=== PATIENT | female | born 1990 | race Caucasian/White ===

== ENCOUNTER 2016-09-19 23:01 | Emergency (ER) | payer SELFPAY ==
--- NOTE | 2016-09-20 02:22 | ED CLINICAL REPORT ---
Clinical Report - Physicians/Mid Levels [facility] [address] [place] [address] 09/19/2016 23:03 Patient: KATYA HEATON Time Seen: 0021. Arrived- By private vehicle. Historian- patient. HISTORY OF PRESENT ILLNESS Chief Complaint: DYSURIA. This started a few days ago and still present. It was abrupt in onset and has been constant but is not gone now. Modifying factors- worsened by urination. Not relieved by anything. The patient has had flank pain (left). She has had pain with urination. Similar symptoms previously: None. Recent medical care: The patient was seen recently in a clinic. ( reports recent dx of UTI. states she was given a medication described as macrobid. has not started abx.). REVIEW OF SYSTEMS No skin rash or enlarged lymph nodes. All systems otherwise negative, except as recorded above. PAST HISTORY See nurses notes. SOCIAL HISTORY Smoker- current status unknown. No alcohol use or drug use. Recent travel- (lives in [place] and here). FAMILY HISTORY Negative. ADDITIONAL NOTES The nursing notes have been reviewed. PHYSICAL EXAM Vital Signs: 09/19/2016 23:28 BP: 129/104. HR: 66. RR: 15. O2 saturation: 96%. Temp: 98.2 F. Pain level now: 7/10. Oxygen saturation normal. Appearance: Alert. Oriented X3. No acute distress. HEENT: Normal external inspection. ENT: Pharynx normal. CVS: Heart sounds normal. There is no decreased capillary refill. Respiratory: No respiratory distress. Breath sounds normal. Chest nontender. Abdomen: Soft and nontender. Bowel sounds normal. No mass. Back: Mild CVA tenderness on the left. Normal external inspection. Skin: Skin warm and dry. Normal skin color. No rash. Normal skin turgor. Extremities: Extremities nontender. No lower extremity edema. LABS, X-RAYS, AND EKG Pelvic Sonogram: PROCEDURE: US OB 1ST TRIMESTER W/TRANSVAG INDICATION: Assess for ectopic. HCG level 11. TECHNIQUE: Saavedra scale, color, and spectral Doppler transabdominal and endovaginal sonographic images of the first trimester gravid uterus were obtained. COMPARISON: None. FINDINGS: TRANSABDOMINAL SCANS: Electrodes are not identified (bladder incompletely filled). Kidneys are normal. TRANSVAGINAL SCANS: Uterus is of normal size (6.1 x 5.0 x 2.4 cm), although retroverted (normal variant). Endometrial thickness is normal (9 mm). No evidence of intrauterine gestational sac. Left ovary is normal (3.1 cm) with small follicular cysts. Right ovary is mildly prominent (4.8 cm) secondary to a 2.1 cm simple cyst. IMPRESSION: 1. There is a 2.1 cm simple right ovarian cysts with small left ovarian follicular cyst, and a small amount of free fluid in the pelvis. 2. There are no secondary signs of (endometrial thickening) and there is no evidence of intrauterine gestational sac. Since the patient is hCG level is low, it is possible patient is not . Alternatively, an undeveloped early intrauterine is still a possibility. A developing ectopic seems unlikely. The study was independently viewed by me and interpreted by the radiologist. The study was discussed with the radiologist (via pacs). Laboratory Tests: CBC w Diff: (RICKEY: 09/20/2016 00:54) ( MsgRcvd 09/20/2016 01:05) Final results Test Result Flag Units (Reference) WHITE BLOOD COUNT 10.9 K/uL (4.5-11.5) RED BLOOD COUNT 4.51 M/uL (4.00-5.20) HEMOGLOBIN 12.3 gm/dL (12.0-16.0) HEMATOCRIT 37.5 % (36.0-46.0) MEAN CELL VOLUME 83 fL (80-100) MEAN CORPUSCULAR HGB 27 pg (26-34) MEAN CORPUSCULAR HGB CONC 33 g/dL (31-37) RED CELL DISTRIBUTION WIDTH 14.9 H % (11.6-14.8) PLATELET COUNT 215 K/uL (150-400) NEUTROPHIL % 84.4 H % (50-75) LYMPH % 11.9 L % (25-40) MONO % 3.5 % (3-14) EOSINOPHIL % 0 % (0-4) BASOPHIL % 0.2 % (0-2) PT with INR: (RICKEY: 09/20/2016 00:54) ( MsgRcvd 09/20/2016 01:14) Final results Test Result Flag Units (Reference) INR 1.0 (0.8-1.2) Low Intensity Therapy: INR 1.5-2.0 PT range 18.5-23.1Mod.Intensity Therapy: INR 2.0-3.0 PT range 23.1-31.5High Intensity Therapy: INR 2.5-3.5 PT range 27.4-35.5High Intensity Therapy 2: INR 3.0-4.0 PT range 31.5-39.3 APTT 33 SECONDS (24-34) CMP: (RICKEY: 09/20/2016 00:54) ( MsgRcvd 09/20/2016 01:22) Final results Test Result Flag Units (Reference) GLUCOSE 122 H mg/dL (70-110) BUN 13 mg/dL (7-18) CREATININE 0.9 mg/dL (0.6-1.3) Estimated GFR >60 mL/min Estimated GFR- >60 mL/min Note: Persistent reduction over 3 months in eGFR<60 mL/min/1.73 m2 defines CKD. Patients with eGFR values>=60 mL/min/1.73 m2 may also have CKD if evidence ofpersistent proteinuria. Additional information may be foundat www.kidney.org. SODIUM 142 mmol/L (136-145) POTASSIUM 4.1 mmol/L (3.5-5.1) CHLORIDE 105 mmol/L (98-107) CARBON DIOXIDE 27 mmol/L (21-32) CALCIUM 9.2 mg/dL (8.5-10.1) TOTAL PROTEIN 7.7 g/dL (6.4-8.2) ALBUMIN 3.7 g/dL (3.3-5.0) BILIRUBIN, TOTAL 0.3 mg/dL (0.0-1.0) ALKALINE PHOSPHATASE 116 U/L (46-116) AST (SGOT) 17 U/L (15-37) ALT (SGPT) 33 U/L (12-78) LIPASE 111 U/L (73-393) BETA HCG, QUANTITATIVE 11 mIU/mL REFERENCE RANGE:Adult Males: <2 mIU/mLNon- Females: <6 mIU/mL Females:Approximate Approximate hCGGestational Age Range (mIU/mL) 0-1 week 0-501-2 weeks 40-3002-3 weeks 100-16868-0 weeks 500-15757-5 months 5,000-200,0002-3 months 10,000-100,0002nd trimester 3,000-50,0003rd trimester 1,000-50,000 UA-Culture if indicated: (RICKEY: 09/19/2016 23:27) ( MsgRcvd 09/20/2016 00:04) Final results Test Result Flag Units (Reference) URINE COLOR YELLOW URINE APPEARANCE CLEAR URINE GLUCOSE NEGATIVE (NEGATIVE) URINE BILIRUBIN NEGATIVE (NEGATIVE) URINE KETONE NEGATIVE (NEGATIVE) URINE SPECIFIC GRAVITY >= 1.030 (1.010-1.030) URINE PH 5.5 (5.0-8.0) URINE PROTEIN NEGATIVE (NEGATIVE) URINE UROBILINOGEN 0.2 EU/dL (0.2-1.0) URINE NITRITE NEGATIVE (NEGATIVE) URINE BLOOD 2+ (NEGATIVE) URINE LEUK ESTERASE NEGATIVE (NEGATIVE) URINE RBC 5-10 rbc/hpf (0-1) URINE WBC 5-10 wbc/hpf (0-1) URINE EPITHELIAL CELLS 1-3 EPI/hpf (0-5) URINE BACTERIA MODERATE (2+ TO 3+) (NONE SEEN) URINE COMMENT CULTURE INDICATED URINE CULTURES ARE SET-UP BASED ON THE FOLLOWING CRITERIA:POSITIVE NITRITEPOSITIVE LEUKOCYTE ESTERASEGREATER THAN 10 WHITE BLOOD CELLSMODERATE (2+) OR GREATER BACTERIA Urine: (RICKEY: 09/19/2016 23:27) ( MsgRcvd 09/20/2016 01:27) Final results Test Result Flag Units (Reference) URINE POSITIVE This is a corrected result 09/20/16 0126:UPREG previously reported as: NEGATIVELATER THAN REQUIRED INCUBATION OF TEST KIT. SERUM HCG OF 11. Type & Screen: (RICKEY: 09/20/2016 00:54) ( MsgRcvd 09/20/2016 01:35) Final results Test Result Flag Units (Reference) PATIENT BLOOD TYPE A Negative ANTIBODY SCREEN NEGATIVE . PROGRESS AND PROCEDURES Course of Care: he patient is a 25-year-old female presenting for evaluation of left sided flank pain. Patient states that she could be . At this time differential diagnosis includes pyelonephritis, versus ectopic . Patient is agreeable to the treatment plan including urinalysis, labs or studies and ultrasound. Pain medication has been offered. Patient's workup was remarkable for the findings above. Had a discussion with the patient in regards to possible ectopic and need for follow-up with beta hCG andrepeat ultrasound. Urinalysis is positive for a UTI. Patient be treated for pyelonephritis. The rest of the patient's examination is unremarkable. First dose of her antibiotic provided here. Because of the patient's possible pyelonephritis, told patient todisregard the Macrobidantibiotic and to start Keflex. Discussed with the patient to work appearing emergency department including diagnosis, home care, follow-up, and return precautions. All questions have been answered. The patient expressed understanding of these instructions and is agreeable to them. Repeat examination continues to be reassuring. No signs of sepsis or more sinister type of infection. Did not feel patient Needs to be admitted to the hospital. Did not fill patient has a surgical abdomen. Disposition: Discharged. Condition: good. CLINICAL IMPRESSION Threatened ; positive test in emergency department. Rh-immunoglobulin (Rhogam) not adminstered because the patient had received it in the last 12 weeks (acute). Acute pyelonephritis (left). INSTRUCTIONS Warnings: GENERAL WARNINGS: Return or contact your physician immediately if your condition worsens or changes unexpectedly, if not improving as expected, or if other problems arise. Specifically return if pain, vomiting, bleeding, breathing difficulty or fever. weakness, dizziness, abnormal discharge, or worsening symptoms. Your Current Medications: CONTINUE TAKING THE FOLLOWING MEDICATIONS: Elis Allergy Oral. Metoprolol-HCTZ ER Oral. Venlafaxine HCl ER Oral. Prescription Medications: Zofran (orally disintegrating tablets) 4 mg: take 1 orally every 8 hours as needed for nausea and vomiting. Dispense ten (10). No refill. Substitution is permissible. Anchor 5 mg / 325 mg tablets: take 1 orally every 6 hours as needed for pain. Dispense twelve (12). No refill. Substitution is permissible. Cephalexin 500 mg: take 1 capsule orally every 8 hours for 10 days. No refill. (disp 30 caps) Follow-up: Return to the emergency department as needed. Follow up with your doctor in three days. Reason for referral: recheck today's concerns. Summary of care provided to patient via paper. Screening today revealed the patient's blood pressure to be in the normal range. The patient should follow up with a primary care provider for blood pressure management. Understanding of the discharge instructions verbalized by patient. Follow-up with: Javy Gibson MD, Obstetrics/Gynecology, , [facility], [address] [place] [address] Follow up in three days. Reason for referral: Contact this office and ask for the covering doctor. Dr. Gibson may be out but his office is open. . Summary of care provided to patient via paper. (Electronically signed by Quincy Soliz Dr. 09/22/2016 16:06)
--- NOTE | 2016-09-20 02:23 | ED ORDER SUMMARY ---
..... Patient: KATYA HEATON OrderSheet [facility] VisitID: [id number] [place] [address] 25y, F Registration Date/Time: 09/19/2016 ORDER SHEET Weight: 106.5 kg (stated) Allergies: Latex GENERAL ORDERS: UA-Culture if indicated Urgent (23:09/19/2016 Galen Huston) (Ack 23:26 Kelsea ER Parts Analyst) (Collected 23:45 RMarsden R.N.) (23:56 RMarsden R.N.) Urine Urgent (23:09/19/2016 Galen Huston) (Ack 23:26 Kelsea ER Parts Analyst) (Collected 23:45 RMarsden R.N.) (23:56 RMarsden R.N.) (Cancelled: Duplicate Order0:29 Galen Huston) US OB 1st Trimester w Transvag (unknown. maybe 1 mo ago vs yesterday when period started) Urgent (00:09/20/2016 Galen Huston) (Ack 0:31 Kelsea ER Parts Analyst) (1:41 RMarsden R.N.) CBC w Diff Urgent (00:09/20/2016 Galen Huston) (Ack 0:31 Kelsea ER Parts Analyst) (Collected 0:50 RMarsden R.N.) (1:41 RMarsden R.N.) CMP Urgent (00:09/20/2016 Galen Huston) (Ack 0:31 Kelsea ER Parts Analyst) (Collected 0:50 RMarsden R.N.) (1:41 RMarsden R.N.) Lipase Urgent (00:09/20/2016 Galen Huston) (Ack 0:31 Kelsea ER Parts Analyst) (Collected 0:50 RMarsden R.N.) (1:41 RMarsden R.N.) PT with INR Urgent (00:09/20/2016 Galen Huston) (Ack 0:31 Kelsea ER Parts Analyst) (Collected 0:50 RMarsden R.N.) (1:41 RMarsden R.N.) PTT Urgent (00:09/20/2016 Galen Huston) (Ack 0:31 CHagerty ER Parts Analyst) (Collected 0:50 RMarsden R.N.) (1:41 RMarsden R.N.) Type & Screen Urgent (00:09/20/2016 Galen Huston) (Ack 0:31 CHagerty ER Parts Analyst) (Collected 0:50 RMarsden R.N.) (1:41 RMarsden R.N.) Serum Quantitative Urgent (00:09/20/2016 Galen Huston) (Ack 0:31 CHagerty ER Parts Analyst) (Collected 0:50 RMarsden R.N.) (1:41 RMarsden R.N.) MEDICATION ORDERS: IV FLUIDS: Dilaudid IV 1 mg (HIGH ALERT MEDICATION, NOW) (00:29 09/20/2016 Galen Huston) (0:50 RMarsden R.N.) IV NS : initial bolus 1000 mL (1000 mL/hr), then none - for X1 (NOW) (00:30 09/20/2016 Galen Huston) (0:46 RMarsden R.N.) Ceftriaxone IV 1 gm/50mL (NOW) (02:17 09/20/2016 Galen Huston) (Ack 2:18 RMarsden R.N.) (2:28 RMarsden R.N.) ORDER SHEET NOTES: [Electronically signed by Ariana Santos R.N. (06:51 09/21/2016)] [Electronically signed by Quincy Soliz Dr. (16:06 09/22/2016)] [Electronically locked/signed by Ariana Santos R.N. (06:51 09/21/2016)]
--- NOTE | 2016-09-20 02:23 | ED NURSING NOTES ---
Clinical Report - Nurses [facility] [address] [place] [address] 09/19/2016 23:03 Patient: KATYA HEATON TRIAGE Triage time 23:28. Acuity: LEVEL 3. Chief Complaint: PELVIC PAIN and LEFT-SIDED FLANK PAIN, SPOTTING and ABNORMAL BLEEDING. Alert. SEPSIS SCREEN: Sepsis Screen. Negative (no infection suspected/documented). SHADE COMA SCORE: Shade Coma Scale: 15- eyes open spontaneously (4); best verbal response- oriented x 4 (5); best motor response- obeys commands (6). --23:39 Mell Cheema R.N. 23:28 09/19/16. BP: 129/104 taken on the left arm, while sitting. HR: 66. RR: 15. O2 saturation: 96%. Temp: 98.2 F. Pain level now: 10/19. --23:39 Mell Cheema R.N. Weight: 106.5 kg stated. Height/Length: 68 inches Per Patient. BMI: 35.7. --23:36 Mell Cheema R.N. Medications Venlafaxine HCl ER Oral. --23:33 Mell Cheema R.N. Metoprolol-HCTZ ER Oral. --23:34 Mell Cheema R.N. Elis Allergy Oral. --23:34 Mell Cheema R.N. Allergies Latex. --23:35 Mell Cheema R.N. History Historian: patient. Accompanied by (significant other). Primary physician (Dr Cummins at [facility] ([place] This started today. ( Patient states she went to a clinic in [place] yesterday due to abnormal vaginal bleeding, and was diagnosed with a UTI. She states she is and doesnt know how far along she is. She states "I can't be more than 7 weeks ". She was prescribed antibiotics at her appt but reports that she hasn't started them yet.). ( nausea). PAST MEDICAL HX: Immunizations: up-to-date. Currently . SOCIAL HX: Heavy tobacco smoker- less than 1 pack per day. No alcohol use or drug use. FALL RISK ASSESSMENT: Fall risk assessment completed. No fall risk identified. NUTRITIONAL RISK ASSESSMENT: The nutritional risk assessment revealed no deficiencies. FUNCTIONAL ASSESSMENT: Functional assessment: no impairments noted. LEARNING NEEDS ASSESSMENT: The learning needs assessment revealed no barriers. SKIN INTEGRITY ASSESSMENT: Skin integrity risk assessment completed. No skin integrity risk identified. --23:39 Mell Cheema R.N. PROBLEMS: Hypertension. Anxiety disorder. --23:35 Mell Cheema R.N. ADDITIONAL SURGERIES: no known surgeries. Interventions ID band on patient. To treatment room. --23:39 Mell Cheema R.N. PHYSICAL ASSESSMENT 23:40 09/19/16. Ambulatory to room. GENERAL / NEURO / PSYCH: Alert. Oriented X 4. Appears in pain and anxious. HEENT: Mucous membranes are pink. RESPIRATORY: Respirations not labored. CVS: Capillary refill less than 2 seconds. GI / : Abdomen soft and nontender. SKIN: Skin is warm and dry. --23:40 Mell Cheema R.N. NURSING PROGRESS NOTES 23:40 09/19/16. Patient gowned. Two patient identifiers checked. Call light placed in reach. Side rails up x 1. Bed placed in lowest position. Brakes of bed on. Patient ready for evaluation- chart flagged and notification provided. --23:43 Mell Cheema R.N. 00:41 09/20/2016 Site #1 started via IV in the left antecubital space with an 20g angiocath; one attempt. Blood drawn: rainbow set. Saline lock flushed with 5 mL saline. --00:46 Mell Cheema R.N. 00:46 09/20/2016 Started bag #1 1000 mL IV Fluids IV NS (Saline); bolus of 1000 mL wide open via site #1. Allergies verified and confirmed 5 rights. IV patency established. IV site checked: no pain, redness, or swelling. IV flushed thoroughly pre- and post-medication administration. Completed per protocol. --00:46 Mell Cheema R.N. 00:50 09/20/2016 Dilaudid (HYDROmorphone HCl PF) IVP 1 mg given over 2 minute(s) via site #1. Allergies verified, confirmed 5 rights and sedative warning given to the patient and patient's automotive glass mechanic. IV patency established. IV site checked: no pain, redness, or swelling. IV flushed thoroughly pre- and post-medication administration. IVP given by RN. --00:50 Mell Cheema R.N. ( US in room 1:15). --01:30 Mell Cheema R.N. 01:45 09/20/16. BP: 148/90. HR: 96. RR: 15. O2 saturation: 95% on room air. Temp: deferred. Pain level now: 0/10. --01:47 Mell Cheema R.N. ( Patient reports no pain or discomfort. She is resting in room.). --01:50 Mell Cheema R.N. 01:57 09/20/2016 IV Fluids IV NS Discontinued: bag #1 infused. Total amount infused: 1000 mL. IV patency established. IV site checked: no pain, redness, or swelling. IV flushed thoroughly. --01:57 Mell Cheema R.N. 01:57 09/20/2016 Dilaudid IVP Response: no adverse reaction pain is gone now. Symptoms have improved the patient feels better. 09/20/2016 01:45 BP: 148/90. HR: 96. RR: 15. O2 saturation: 95%. Pain level now: 0/10. --01:57 Mell Cheema R.N. 02:28 09/20/2016 Started 1 gm of Ceftriaxone IVPB in bag #1 50 mL; at 110 mL/hr over 28 minute(s) via site #1 via IV pump. Allergies verified and confirmed 5 rights. IV patency established. IV site checked: no pain, redness, or swelling. IV flushed thoroughly pre- and post-medication administration. Completed per protocol. --02:28 Mell Cheema R.N. 02:45 09/20/2016 Ceftriaxone IVPB Response: no adverse reaction. 09/20/2016 02:50 BP: 134/90. HR: 91. RR: 12. O2 saturation: 100%. Pain level now: 0/10. --03:00 Mell Cheema R.N. 02:50 09/20/2016 Ceftriaxone IVPB Discontinued: bag #1 completed upon discharge. Total amount infused: 50 mL. IV patency established. IV site checked: no pain, redness, or swelling. IV flushed thoroughly. --02:55 Mell Cheema R.N. DISPOSITION / DISCHARGE 02:50 09/20/16. BP: 134/90. HR: 91. RR: 12. O2 saturation: 100%. Temp: deferred. Pain level now: 0/10. --02:55 Mell Cheema R.N. 02:54 09/20/2016 Site #1 removed upon discharge. Catheter intact. Manual pressure and bandaid applied. --02:59 Mell Cheema R.N. 02:55 09/20/16. No learning barriers present. Discharge instructions provided and reviewed with the patient. Reviewed warnings. Reviewed medication(s). Treatments reviewed. Reviewed referrals. Patient and automotive glass mechanic verbalized understanding. Written instructions provided in Mexican. The patient was discharged home and accompanied by automotive glass mechanic. She left the Emergency Department ambulatory and via private vehicle. It Trainer driving. --02:55 Mell Cheema R.N. Locked/Released at 09/21/2016 6:51 by Ariana Santos R.N.
--- NOTE | 2016-09-20 02:23 | ED ORDER SUMMARY ---
..... Patient: KATYA HEATON OrderSheet [facility] VisitID: [id number] [place] [address] 25y, F Registration Date/Time: 09/19/2016 ORDER SHEET Weight: 106.5 kg (stated) Allergies: Latex GENERAL ORDERS: UA-Culture if indicated Urgent (23:09/19/2016 Galen Huston) (Ack 23:26 Kelsea ER Complaint Investigations Officer) (Collected 23:45 RMarsden R.N.) (23:56 RMarsden R.N.) Urine Urgent (23:09/19/2016 Galen Huston) (Ack 23:26 Kelsea ER Complaint Investigations Officer) (Collected 23:45 RMarsden R.N.) (23:56 RMarsden R.N.) (Cancelled: Duplicate Order0:29 Galen Huston) US OB 1st Trimester w Transvag (unknown. maybe 1 mo ago vs yesterday when period started) Urgent (00:09/20/2016 Galen Huston) (Ack 0:31 Kelsea ER Complaint Investigations Officer) (1:41 RMarsden R.N.) CBC w Diff Urgent (00:09/20/2016 Galen Huston) (Ack 0:31 Kelsea ER Complaint Investigations Officer) (Collected 0:50 RMarsden R.N.) (1:41 RMarsden R.N.) CMP Urgent (00:09/20/2016 Galen Huston) (Ack 0:31 Kelsea ER Complaint Investigations Officer) (Collected 0:50 RMarsden R.N.) (1:41 RMarsden R.N.) Lipase Urgent (00:09/20/2016 Galen Huston) (Ack 0:31 Kelsea ER Complaint Investigations Officer) (Collected 0:50 RMarsden R.N.) (1:41 RMarsden R.N.) PT with INR Urgent (00:09/20/2016 Galen Huston) (Ack 0:31 Kelsea ER Complaint Investigations Officer) (Collected 0:50 RMarsden R.N.) (1:41 RMarsden R.N.) PTT Urgent (00:09/20/2016 Galen Huston) (Ack 0:31 CHagerty ER Complaint Investigations Officer) (Collected 0:50 RMarsden R.N.) (1:41 RMarsden R.N.) Type & Screen Urgent (00:09/20/2016 Galen Huston) (Ack 0:31 CHagerty ER Complaint Investigations Officer) (Collected 0:50 RMarsden R.N.) (1:41 RMarsden R.N.) Serum Quantitative Urgent (00:09/20/2016 Galen Huston) (Ack 0:31 CHagerty ER Complaint Investigations Officer) (Collected 0:50 RMarsden R.N.) (1:41 RMarsden R.N.) MEDICATION ORDERS: IV FLUIDS: Dilaudid IV 1 mg (HIGH ALERT MEDICATION, NOW) (00:29 09/20/2016 Galen Huston) (0:50 RMarsden R.N.) IV NS : initial bolus 1000 mL (1000 mL/hr), then none - for X1 (NOW) (00:30 09/20/2016 Galen Huston) (0:46 RMarsden R.N.) Ceftriaxone IV 1 gm/50mL (NOW) (02:17 09/20/2016 Galen Huston) (Ack 2:18 RMarsden R.N.) (2:28 RMarsden R.N.) ORDER SHEET NOTES: [Electronically signed by Ariana Santos R.N. (06:51 09/21/2016)] [Electronically signed by Quincy Soliz Dr. (16:06 09/22/2016)] [Electronically locked/signed by Ariana Santos R.N. (06:51 09/21/2016)]
--- NOTE | 2016-09-20 02:23 | ED NURSING NOTES ---
Clinical Report - Nurses [facility] [address] [place] [address] 09/19/2016 23:03 Patient: KATYA HEATON TRIAGE Triage time 23:28. Acuity: LEVEL 3. Chief Complaint: PELVIC PAIN and LEFT-SIDED FLANK PAIN, SPOTTING and ABNORMAL BLEEDING. Alert. SEPSIS SCREEN: Sepsis Screen. Negative (no infection suspected/documented). SHADE COMA SCORE: Shade Coma Scale: 15- eyes open spontaneously (4); best verbal response- oriented x 4 (5); best motor response- obeys commands (6). --23:39 Mell Cheema R.N. 23:28 09/19/16. BP: 129/104 taken on the left arm, while sitting. HR: 66. RR: 15. O2 saturation: 96%. Temp: 98.2 F. Pain level now: 10/19. --23:39 Mell Cheema R.N. Weight: 106.5 kg stated. Height/Length: 68 inches Per Patient. BMI: 35.7. --23:36 Mell Cheema R.N. Medications Venlafaxine HCl ER Oral. --23:33 Mell Cheema R.N. Metoprolol-HCTZ ER Oral. --23:34 Mell Cheema R.N. Elis Allergy Oral. --23:34 eMll Cheema R.N. Allergies Latex. --23:35 Mell Cheema R.N. History Historian: patient. Accompanied by (significant other). Primary physician (Dr Cummins at [facility] in ([place] This started today. ( Patient states she went to a clinic in [place] yesterday due to abnormal vaginal bleeding, and was diagnosed with a UTI. She states she is and doesnt know how far along she is. She states "I can't be more than 7 weeks ". She was prescribed antibiotics at her appt but reports that she hasn't started them yet.). ( nausea). PAST MEDICAL HX: Immunizations: up-to-date. Currently . SOCIAL HX: Heavy tobacco smoker- less than 1 pack per day. No alcohol use or drug use. FALL RISK ASSESSMENT: Fall risk assessment completed. No fall risk identified. NUTRITIONAL RISK ASSESSMENT: The nutritional risk assessment revealed no deficiencies. FUNCTIONAL ASSESSMENT: Functional assessment: no impairments noted. LEARNING NEEDS ASSESSMENT: The learning needs assessment revealed no barriers. SKIN INTEGRITY ASSESSMENT: Skin integrity risk assessment completed. No skin integrity risk identified. --23:39 Mell Cheema R.N. PROBLEMS: Hypertension. Anxiety disorder. --23:35 Mell Cheema R.N. ADDITIONAL SURGERIES: no known surgeries. Interventions ID band on patient. To treatment room. --23:39 Mell Cheema R.N. PHYSICAL ASSESSMENT 23:40 09/19/16. Ambulatory to room. GENERAL / NEURO / PSYCH: Alert. Oriented X 4. Appears in pain and anxious. HEENT: Mucous membranes are pink. RESPIRATORY: Respirations not labored. CVS: Capillary refill less than 2 seconds. GI / : Abdomen soft and nontender. SKIN: Skin is warm and dry. --23:40 Mell Cheema R.N. NURSING PROGRESS NOTES 23:40 09/19/16. Patient gowned. Two patient identifiers checked. Call light placed in reach. Side rails up x 1. Bed placed in lowest position. Brakes of bed on. Patient ready for evaluation- chart flagged and notification provided. --23:43 Mell Cheema R.N. 00:41 09/20/2016 Site #1 started via IV in the left antecubital space with an 20g angiocath; one attempt. Blood drawn: rainbow set. Saline lock flushed with 5 mL saline. --00:46 Mell Cheema R.N. 00:46 09/20/2016 Started bag #1 1000 mL IV Fluids IV NS (Saline); bolus of 1000 mL wide open via site #1. Allergies verified and confirmed 5 rights. IV patency established. IV site checked: no pain, redness, or swelling. IV flushed thoroughly pre- and post-medication administration. Completed per protocol. --00:46 Mell Cheema R.N. 00:50 09/20/2016 Dilaudid (HYDROmorphone HCl PF) IVP 1 mg given over 2 minute(s) via site #1. Allergies verified, confirmed 5 rights and sedative warning given to the patient and patient's wax machine operator. IV patency established. IV site checked: no pain, redness, or swelling. IV flushed thoroughly pre- and post-medication administration. IVP given by RN. --00:50 Mell Cheema R.N. ( US in room 1:15). --01:30 Mell Cheeam R.N. 01:45 09/20/16. BP: 148/90. HR: 96. RR: 15. O2 saturation: 95% on room air. Temp: deferred. Pain level now: 0/10. --01:47 Mell Cheema R.N. ( Patient reports no pain or discomfort. She is resting in room.). --01:50 Mell Cheema R.N. 01:57 09/20/2016 IV Fluids IV NS Discontinued: bag #1 infused. Total amount infused: 1000 mL. IV patency established. IV site checked: no pain, redness, or swelling. IV flushed thoroughly. --01:57 Mell Cheema R.N. 01:57 09/20/2016 Dilaudid IVP Response: no adverse reaction pain is gone now. Symptoms have improved the patient feels better. 09/20/2016 01:45 BP: 148/90. HR: 96. RR: 15. O2 saturation: 95%. Pain level now: 0/10. --01:57 Mell Cheema R.N. 02:28 09/20/2016 Started 1 gm of Ceftriaxone IVPB in bag #1 50 mL; at 110 mL/hr over 28 minute(s) via site #1 via IV pump. Allergies verified and confirmed 5 rights. IV patency established. IV site checked: no pain, redness, or swelling. IV flushed thoroughly pre- and post-medication administration. Completed per protocol. --02:28 Mell Cheema R.N. 02:45 09/20/2016 Ceftriaxone IVPB Response: no adverse reaction. 09/20/2016 02:50 BP: 134/90. HR: 91. RR: 12. O2 saturation: 100%. Pain level now: 0/10. --03:00 Mell Cheema R.N. 02:50 09/20/2016 Ceftriaxone IVPB Discontinued: bag #1 completed upon discharge. Total amount infused: 50 mL. IV patency established. IV site checked: no pain, redness, or swelling. IV flushed thoroughly. --02:55 Mell Cheema R.N. DISPOSITION / DISCHARGE 02:50 09/20/16. BP: 134/90. HR: 91. RR: 12. O2 saturation: 100%. Temp: deferred. Pain level now: 0/10. --02:55 Mell Cheema R.N. 02:54 09/20/2016 Site #1 removed upon discharge. Catheter intact. Manual pressure and bandaid applied. --02:59 Mell Cheema R.N. 02:55 09/20/16. No learning barriers present. Discharge instructions provided and reviewed with the patient. Reviewed warnings. Reviewed medication(s). Treatments reviewed. Reviewed referrals. Patient and wax machine operator verbalized understanding. Written instructions provided in [place]an. The patient was discharged home and accompanied by wax machine operator. She left the Emergency Department ambulatory and via private vehicle. Slasher Tender driving. --02:55 Mell Cheema R.N. Locked/Released at 09/21/2016 6:51 by Ariana Santos R.N.
--- NOTE | 2016-09-20 05:00 | DIAGNOSTIC IMAGING REPORT ---
PROCEDURE: US OB 1ST TRIMESTER W/TRANSVAG INDICATION: Assess for ectopic. HCG level 11. TECHNIQUE: Saavedra scale, color, and spectral Doppler transabdominal and endovaginal sonographic images of the first trimester gravid uterus were obtained. COMPARISON: None. FINDINGS: TRANSABDOMINAL SCANS: Electrodes are not identified (bladder incompletely filled). Kidneys are normal. TRANSVAGINAL SCANS: Uterus is of normal size (6.1 x 5.0 x 2.4 cm), although retroverted (normal variant). Endometrial thickness is normal (9 mm). No evidence of intrauterine gestational sac. Left ovary is normal (3.1 cm) with small follicular cysts. Right ovary is mildly prominent (4.8 cm) secondary to a 2.1 cm simple cyst. IMPRESSION: 1. There is a 2.1 cm simple right ovarian cysts with small left ovarian follicular cyst, and a small amount of free fluid in the pelvis. 2. There are no secondary signs of (endometrial thickening) and there is no evidence of intrauterine gestational sac. Since the patient is hCG level is low, it is possible patient is not . Alternatively, an undeveloped early intrauterine is still a possibility. A developing ectopic seems unlikely.
--- NOTE | 2016-09-22 16:07 | ED DISCHARGE INSTRUCTIONS ---
Patient: KATYA HEATON General Instructions [facility] VisitID: [id number] [place] [address] 25y, F Registration Date/Time: 09/19/2016 Threatened ; positive test in emergency department. Rh-immunoglobulin (Rhogam) not adminstered because the patient had received it in the last 12 weeks (acute). Acute pyelonephritis (left). INSTRUCTIONS Warnings: GENERAL WARNINGS: Return or contact your physician immediately if your condition worsens or changes unexpectedly, if not improving as expected, or if other problems arise. Specifically return if pain, vomiting, bleeding, breathing difficulty or fever. weakness, dizziness, abnormal discharge, or worsening symptoms. Your Current Medications: CONTINUE TAKING THE FOLLOWING MEDICATIONS: Elis Allergy Oral. Metoprolol-HCTZ ER Oral. Venlafaxine HCl ER Oral. Prescription Medications: Zofran (orally disintegrating tablets) 4 mg: take 1 orally every 8 hours as needed for nausea and vomiting. Dispense ten (10). No refill. Substitution is permissible. [place] 5 mg / 325 mg tablets: take 1 orally every 6 hours as needed for pain. Dispense twelve (12). No refill. Substitution is permissible. Cephalexin 500 mg: take 1 capsule orally every 8 hours for 10 days. No refill. (disp 30 caps) Follow-up: Return to the emergency department as needed. Follow up with your doctor in three days. Reason for referral: recheck today's concerns. Summary of care provided to patient via paper. Screening today revealed the patient's blood pressure to be in the normal range. The patient should follow up with a primary care provider for blood pressure management. Understanding of the discharge instructions verbalized by patient. Follow-up with: Javy Gibson MD, Obstetrics/Gynecology, , [facility], [address] [place] [address] Follow up in three days. Reason for referral: Contact this office and ask for the covering doctor. Dr. Gibson may be out but his office is open. . Summary of care provided to patient via paper. ADDITIONAL INFORMATION Abdominal Pain And Early [R/O Sab, Ectopic: Serial Q-Hcg's] Based on your visit today, we know you are . But, the exact cause of your abdominal (stomach) pain is not certain. Some pain or bleeding may occur in a NORMAL . But pain may also be a sign of a MISCARRIAGE or an ECTOPIC (baby growing in the Fallopian tube instead of the uterus). An ectopic is a very serious condition. It can lead to severe internal bleeding and even . Therefore, further tests are needed to find out the cause of your symptoms. These may include: ULTRASOUND - A pelvic ultrasound can detect a normal as early as 4-5 weeks of age. But, if the ultrasound test does not show the baby inside the uterus, it means that i) you have a normal less than 4 weeks old, ii) you are having or recently had a miscarriage or iii) you have an ectopic . QUANTITATIVE HCG - a test that measures the amount of hormone in your blood. Comparing today's test result to a repeat test in 48 hours shows whether or not you have a normal . LAPAROSCOPY - a surgical procedure where a tube with a light is placed inside the abdomen to look directly at the pelvic organs. This is used when it is not safe to wait 48 hours for blood test results. Important If you do have an ectopic , there is a small chance that the growing fetus can tear the Fallopian tube and cause severe internal bleeding. If this happens, there may be SUDDEN SEVERE LOWER ABDOMINAL PAIN, VAGINAL BLEEDING, WEAKNESS, DIZZINESS and sometimes FAINTING. If any of these symptoms occur: CALL AN AMBULANCE (call 911) or return immediately to the hospital. DO NOT DRIVE YOURSELF. DO NOT GO TO YOUR DOCTOR'S OFFICE OR TO A CLINIC. Home Care: Rest until your next exam. Do not perform any strenuous activity. Eat a light diet with foods that are easy to digest. Avoid sexual intercourse until all symptoms have gone away and you are cleared by your doctor. Follow Up with your doctor or this facility as advised for repeat blood testing. [NOTE: If you had an X-ray or ultrasound test, it will be reviewed by a specialist. You will be notified of any new findings that may affect your care.] Get Prompt Medical Attention if any of the following occur: Sudden or gradual worsening abdominal pain Fainting, dizziness or weakness when standing Heavy vaginal bleeding (soaking one pad an hour for three hours) Vaginal bleeding for more than 5 days Repeated vomiting or diarrhea Pain that moves to the right lower abdomen (stomach) Blood in vomit or bowel movements (dark red or black color) Fever of 100.4F (38C) or higher, or as directed by your healthcare provider Kidney Infection [Adult, Female] An infection of the kidney is also called "pyelonephritis". It usually starts as a bladder infection ("cystitis") which spreads to the kidneys. Pyelonephritis is more serious than a bladder infection. It can cause severe illness if not treated properly. The usual symptoms include an aching pain in the back, side or lower abdomen. Other symptoms may include fever, chills, nausea, vomiting, an urge to urinate and a burning sensation when passing urine. Home Care: Stay home from work or school. Rest in bed until your fever breaks and you are feeling better. Drink lots of fluid (at least 6-8 glasses a day, unless you must restrict fluids for other medical reasons). This will force the medicine into your urinary system and flush the bacteria out of your body. Avoid sexual intercourse until you have finished all of your medicine and your symptoms have gone away. Avoid caffeine, alcohol and spicy foods which may irritate the kidney and bladder. You may use acetaminophen (Tylenol) or ibuprofen (Motrin, Advil) to control pain, unless another pain medicine was prescribed. [NOTE: If you have chronic liver or kidney disease or ever had a stomach ulcer or GI bleeding, talk with your doctor before using these medicines.] Follow Up with your doctor or as advised by our staff for a repeat urine test in 10 days. This will ensure that your infection is fully cleared. [NOTE: If you had an X-ray or CT scan, it will be reviewed by a specialist. You will be notified of any new findings that may affect your care.] Get Prompt Medical Attention if any of the following occur: Fever over 100.4F (38.0C) after 48 hours of treatment No improvement by the third day of treatment Increasing back or abdominal pain Repeated vomiting or inability to take oral medicine Weakness, dizziness or fainting Ondansetron Oral disintegrating tablet What is this medicine? ONDANSETRON (on CHIDI se gabriel) is used to treat nausea and vomiting caused by chemotherapy. It is also used to prevent or treat nausea and vomiting after surgery. How should I use this medicine? These tablets are made to dissolve in the mouth. Do not try to push the tablet through the foil backing. With dry hands, peel away the foil backing and gently remove the tablet. Place the tablet in the mouth and allow it to dissolve, then swallow. While you may take these tablets with water, it is not necessary to do so. Talk to your marriage and family counselor regarding the use of this medicine in children. Special care may be needed. What side effects may I notice from receiving this medicine? Side effects that you should report to your doctor or health personal care service provider as soon as possible: allergic reactions like skin rash, itching or hives, swelling of the face, lips, or tongue breathing problems dizziness fast or irregular heartbeat feeling faint or lightheaded, falls fever and chills swelling of the hands and feet tightness in the chest Side effects that usually do not require medical attention (report to your doctor or health personal care service provider if they continue or are bothersome): constipation or diarrhea headache What may interact with this medicine? Do not take this medicine with any of the following medications: -apomorphine -cisapride -dofetilide -dronedarone -pimozide -thioridazine -ziprasidone This medicine may also interact with the following medications: -carbamazepine -phenytoin -rifampicin -tramadol -other medicines that prolong the QT interval (cause an abnormal heart rhythm) What if I miss a dose? If you miss a dose, take it as soon as you can. If it is almost time for your next dose, take only that dose. Do not take double or extra doses. Where should I keep my medicine? Keep out of the reach of children. Store between 2 and 30 degrees C (36 and 86 degrees F). Throw away any unused medicine after the expiration date. What should I tell my health care provider before I take this medicine? They need to know if you have any of these conditions: heart disease history of irregular heartbeat liver disease low levels of magnesium or potassium in the blood an unusual or allergic reaction to ondansetron, granisetron, other medicines, foods, dyes, or preservatives or trying to get breast-feeding What should I watch for while using this medicine? Check with your doctor or health personal care service provider as soon as you can if you have any sign of an allergic reaction. Hydrocodone Bitartrate, Acetaminophen Oral tablet What is this medicine? ACETAMINOPHEN; HYDROCODONE (a set a LUISITO dominga fen; geneva droe KOE done) is a pain reliever. It is used to treat mild to moderate pain. How should I use this medicine? Take this medicine by mouth. Swallow it with a full glass of water. Follow the directions on the prescription label. If the medicine upsets your stomach, take the medicine with food or milk. Do not take more than you are told to take. Talk to your marriage and family counselor regarding the use of this medicine in children. This medicine is not approved for use in children. What side effects may I notice from receiving this medicine? Side effects that you should report to your doctor or health personal care service provider as soon as possible: allergic reactions like skin rash, itching or hives, swelling of the face, lips, or tongue breathing problems confusion feeling faint or lightheaded, falls stomach pain yellowing of the eyes or skin Side effects that usually do not require medical attention (report to your doctor or health personal care service provider if they continue or are bothersome): nausea, vomiting stomach upset What may interact with this medicine? alcohol antihistamines isoniazid medicines for depression, anxiety, or psychotic disturbances medicines for sleep muscle relaxants naltrexone narcotic medicines (opiates) for pain phenobarbital ritonavir tramadol What if I miss a dose? If you miss a dose, take it as soon as you can. If it is almost time for your next dose, take only that dose. Do not take double or extra doses. Where should I keep my medicine? Keep out of the reach of children. This medicine can be abused. Keep your medicine in a safe place to protect it from theft. Do not share this medicine with anyone. Selling or giving away this medicine is dangerous and against the law. Store at room temperature between 15 and 30 degrees C (59 and 86 degrees F). Protect from light. Keep container tightly closed. Throw away any unused medicine after the expiration date. Discard unused medicine and used packaging carefully. Pets and children can be harmed if they find used or lost packages. What should I tell my health care provider before I take this medicine? They need to know if you have any of these conditions: brain tumor Crohn's disease, inflammatory bowel disease, or ulcerative colitis drink more than 3 alcohol-containing drinks per day drug abuse or addiction head injury heart or circulation problems kidney disease or problems going to the bathroom liver disease lung disease, asthma, or breathing problems an unusual or allergic reaction to acetaminophen, hydrocodone, other opioid analgesics, other medicines, foods, dyes, or preservatives or trying to get breast-feeding What should I watch for while using this medicine? Tell your doctor or health personal care service provider if your pain does not go away, if it gets worse, or if you have new or a different type of pain. You may develop tolerance to the medicine. Tolerance means that you will need a higher dose of the medicine for pain relief. Tolerance is normal and is expected if you take the medicine for a long time. Do not suddenly stop taking your medicine because you may develop a severe reaction. Your body becomes used to the medicine. This does NOT mean you are addicted. Addiction is a behavior related to getting and using a drug for a non-medical reason. If you have pain, you have a medical reason to take pain medicine. Your doctor will tell you how much medicine to take. If your doctor wants you to stop the medicine, the dose will be slowly lowered over time to avoid any side effects. You may get drowsy or dizzy when you first start taking the medicine or change doses. Do not drive, use machinery, or do anything that may be dangerous until you know how the medicine affects you. Stand or sit up slowly. There are different types of narcotic medicines (opiates) for pain. If you take more than one type at the same time, you may have more side effects. Give your health care provider a list of all medicines you use. Your doctor will tell you how much medicine to take. Do not take more medicine than directed. Call emergency for help if you have problems breathing. The medicine will cause constipation. Try to have a bowel movement at least every 2 to 3 days. If you do not have a bowel movement for 3 days, call your doctor or health personal care service provider. Too much acetaminophen can be very dangerous. Do not take Tylenol (acetaminophen) or medicines that contain acetaminophen with this medicine. Many non-prescription medicines contain acetaminophen. Always read the labels carefully. Cephalexin Monohydrate Oral tablet What is this medicine? CEPHALEXIN (sef a FITO in) is a cephalosporin antibiotic. It is used to treat certain kinds of bacterial infections It will not work for colds, flu, or other viral infections. How should I use this medicine? Take this medicine by mouth with a full glass of water. Follow the directions on the prescription label. This medicine can be taken with or without food. Take your medicine at regular intervals. Do not take your medicine more often than directed. Take all of your medicine as directed even if you think you are better. Do not skip doses or stop your medicine early. Talk to your marriage and family counselor regarding the use of this medicine in children. While this drug may be prescribed for selected conditions, precautions do apply. What side effects may I notice from receiving this medicine? Side effects that you should report to your doctor or health personal care service provider as soon as possible: allergic reactions like skin rash, itching or hives, swelling of the face, lips, or tongue breathing problems pain or trouble passing urine redness, blistering, peeling or loosening of the skin, including inside the mouth severe or watery diarrhea unusually weak or tired yellowing of the eyes, skin Side effects that usually do not require medical attention (report to your doctor or health personal care service provider if they continue or are bothersome): gas or heartburn genital or anal irritation headache joint or muscle pain nausea, vomiting What may interact with this medicine? probenecid some other antibiotics What if I miss a dose? If you miss a dose, take it as soon as you can. If it is almost time for your next dose, take only that dose. Do not take double or extra doses. There should be at least 4 to 6 hours between doses. Where should I keep my medicine? Keep out of the reach of children. Store at room temperature between 59 and 86 degrees F (15 and 30 degrees C). Throw away any unused medicine after the expiration date. What should I tell my health care provider before I take this medicine? They need to know if you have any of these conditions: kidney disease stomach or intestine problems, especially colitis an unusual or allergic reaction to cephalexin, other cephalosporins, penicillins, other antibiotics, medicines, foods, dyes or preservatives or trying to get breast-feeding What should I watch for while using this medicine? Tell your doctor or health personal care service provider if your symptoms do not begin to improve in a few days. Do not treat diarrhea with over the counter products. Contact your doctor if you have diarrhea that lasts more than 2 days or if it is severe and watery. If you have diabetes, you may get a false-positive result for sugar in your urine. Check with your doctor or health personal care service provider. You have been given the following additional information: Abdominal Pain, Early Pyelonephritis, Female (Adult) Ondansetron Oral disintegrating tablet Hydrocodone Bitartrate, Acetaminophen Oral tablet Cephalexin Monohydrate Oral tablet (Electronically signed by Quincy Soliz Dr. 09/22/2016 16:06)
--- NOTE | 2016-09-22 16:07 | ED MED RECONCILIATION SUMMARY ---
Patient: KATYA HEATON Medication Reconciliation Report [facility] VisitID: [id number] [place] [address] 25y, F Registration Date/Time: 09/19/2016 Weight: 106.5 kg Height/Length: 68 in. BMI: 35.7 ALLERGIES: Latex The patient's Home Medications are listed below: CONTINUE TAKING THE FOLLOWING MEDICATIONS: Elis Allergy Oral Metoprolol-HCTZ ER Oral Venlafaxine HCl ER Oral The source(s) of the original Home Medication information: Not obtained. The following Medications were given to the patient in the Emergency Department: IV NS IV Fluids bolus 1000 mL wide open, administered: 09/20/2016 12:46:00 AM Dilaudid [IVP] IVP 1 mg, administered: 09/20/2016 12:50:00 AM Ceftriaxone [IVPB] IVPB bolus 0, then 1 gm 110 mL/hr, administered: 09/20/2016 2:28:00 AM The following Medications were prescribed to the patient: Zofran (orally disintegrating tablets) 4 mg: take 1 orally every 8 hours as needed for nausea and vomiting. Dispense ten (10). No refill. Substitution is permissible. -- Quincy Soliz Dr. [place] 5 mg / 325 mg tablets: take 1 orally every 6 hours as needed for pain. Dispense twelve (12). No refill. Substitution is permissible. -- Quincy Soliz Dr. Cephalexin 500 mg: take 1 capsule orally every 8 hours for 10 days. No refill.(disp 30 caps) -- Quincy Soliz Dr.
--- NOTE | 2016-09-22 16:07 | ED MAR SUMMARY ---
..... Medication Administration Record [facility] [address] [place] [address] Patient: KATYA HEATON Visit ID: [id number] 25y, F Weight: 106.5 kg Height/Length: 68 in BMI: 35.7 ALLERGIES: Latex Start 00:46 09/20/2016 Mell Cheema R.N., Stop 01:57 09/20/2016 Mell Cheema R.N. Medication Administered: IV NS (SALINE), Dose: IV Fluids, Bolus: 1000 mL wide open, Dispensed: 1000 mL bag, Site: #1 left AC. Medication Ordered: IV NS : initial bolus 1000 mL (1000 mL/hr), then none - for X1 (NOW). Given 00:50 09/20/2016 Mell Cheema R.N. Medication Administered: DILAUDID [IVP] (HYDROMORPHONE HCL PF), Dose: 1 mg IVP over 2 minute(s), Site: #1 left AC. Medication Ordered: Dilaudid IV 1 mg (HIGH ALERT MEDICATION, NOW). Start 02:28 09/20/2016 Mell Cheema R.N., Stop 02:50 09/20/2016 Mell Cheema R.N. Medication Administered: CEFTRIAXONE [IVPB], Dose: 1 gm IVPB over 28 minute(s), Rate: 110 mL/hr, Dispensed: 50 mL bag, Site: #1 left AC. Medication Ordered: Ceftriaxone IV 1 gm/50mL (NOW).
--- NOTE | 2016-09-22 16:07 | ED MED RECONCILIATION SUMMARY ---
Patient: KATYA HEATON Medication Reconciliation Report [facility] VisitID: [id number] [place] [address] 25y, F Registration Date/Time: 09/19/2016 Weight: 106.5 kg Height/Length: 68 in. BMI: 35.7 ALLERGIES: Latex The patient's Home Medications are listed below: CONTINUE TAKING THE FOLLOWING MEDICATIONS: Elis Allergy Oral Metoprolol-HCTZ ER Oral Venlafaxine HCl ER Oral The source(s) of the original Home Medication information: Not obtained. The following Medications were given to the patient in the Emergency Department: IV NS IV Fluids bolus 1000 mL wide open, administered: 09/20/2016 12:46:00 AM Dilaudid [IVP] IVP 1 mg, administered: 09/20/2016 12:50:00 AM Ceftriaxone [IVPB] IVPB bolus 0, then 1 gm 110 mL/hr, administered: 09/20/2016 2:28:00 AM The following Medications were prescribed to the patient: Zofran (orally disintegrating tablets) 4 mg: take 1 orally every 8 hours as needed for nausea and vomiting. Dispense ten (10). No refill. Substitution is permissible. -- Quincy Soliz Dr. [place] 5 mg / 325 mg tablets: take 1 orally every 6 hours as needed for pain. Dispense twelve (12). No refill. Substitution is permissible. -- Quincy Soliz Dr. Cephalexin 500 mg: take 1 capsule orally every 8 hours for 10 days. No refill.(disp 30 caps) -- Quincy Soliz Dr.
--- NOTE | 2016-09-22 16:07 | ED MAR SUMMARY ---
..... Medication Administration Record [facility] [address] [place] [address] Patient: KATYA HEATON Visit ID: [id number] 25y, F Weight: 106.5 kg Height/Length: 68 in BMI: 35.7 ALLERGIES: Latex Start 00:46 09/20/2016 Mell Cheema R.N., Stop 01:57 09/20/2016 Mell Cheema R.N. Medication Administered: IV NS (SALINE), Dose: IV Fluids, Bolus: 1000 mL wide open, Dispensed: 1000 mL bag, Site: #1 left AC. Medication Ordered: IV NS : initial bolus 1000 mL (1000 mL/hr), then none - for X1 (NOW). Given 00:50 09/20/2016 Mell Cheema R.N. Medication Administered: DILAUDID [IVP] (HYDROMORPHONE HCL PF), Dose: 1 mg IVP over 2 minute(s), Site: #1 left AC. Medication Ordered: Dilaudid IV 1 mg (HIGH ALERT MEDICATION, NOW). Start 02:28 09/20/2016 Mell Cheema R.N., Stop 02:50 09/20/2016 Mell Cheema R.N. Medication Administered: CEFTRIAXONE [IVPB], Dose: 1 gm IVPB over 28 minute(s), Rate: 110 mL/hr, Dispensed: 50 mL bag, Site: #1 left AC. Medication Ordered: Ceftriaxone IV 1 gm/50mL (NOW).
== END 2016-09-20 02:56 | disposition home or self-care (01) ==
LOC: ED SRH 23:01
DX: O23.01 Infections of kidney in pregnancy, first trimester (principal); B96.89 Other specified bacterial agents as the cause of diseases classified elsewhere; O20.0 Threatened abortion; Z3A.01 Less than 8 weeks gestation of pregnancy; I10 Essential (primary) hypertension; Z79.899 Other long term (current) drug therapy; F17.210 Nicotine dependence, cigarettes, uncomplicated; Z91.040 Latex allergy status
CPT/HCPCS: 90001; 90004; 90100; 90155; 90197; 90469; 91004; 92235; 93070; 94001; 94060; 95059